=== PATIENT | female | born 1950 | race Caucasian/White ===

== ENCOUNTER 2018-09-21 13:18 | Emergency (ER) | payer OTHER ==
[~2018-09-21] VITALS: Ht 160 cm; Wt 65.9 kg
[2018-09-21 13:25] VITALS: BP 157/91
--- NOTE | 2018-09-21 14:01 | NUR ---
PT TO ER BED 12
--- NOTE | 2018-09-21 14:05 | NUR ---
BIB FAMILY WITH C/O LT EYE PAIN 04/01 TODAY. NO EYE DISCHARGE. NO REDNESS. DENIES BLURRED VISION. DENIES TRAUMA OR INJURY. PERRLA. EYE BRISK 3 MM.PER PT SHE HAD BL CATARACT SURGERY OVER 7 YEARS AGO. HOB UP. BED SIDE RAILS UP X1. ON LOW BED POSITION, LOCKED. ER MADE AWARE OF PT STATUS.
[2018-09-21 15:47] VITALS: BP 142/88
--- NOTE | 2018-09-21 15:47 | NUR ---
Patient discharged with v/s stable. Written and verbal after care instructions given and explained. Patient alert, oriented and verbalized understanding of instructions. Ambulatory with steady gait. All questions addressed prior to discharge. ID band removed. Patient advised to follow up with PMD. Rx of Ketoralac Tromethamine 0.5% Ophthalmic Le given. Patient educated on indication of medication including possible reaction and side effects. Opportunity to ask questions provided and answered.
== END 2018-09-21 15:47 | disposition home or self-care (01) ==
LOC: MED 13:18
DX: H57.12 Ocular pain, left eye (principal); Z98.890 Other specified postprocedural states
CPT/HCPCS: 99283